=== PATIENT | female | born 1990 | race Caucasian/White ===

== ENCOUNTER → 2020-04-11 | Outpatient (CLI) | payer OTHER ==
--- NOTE | 2020-04-11 11:08 | REP ---
INDICATION: O44.40 LOW LYING PLACENTA,PLACENTAL LOCATION. COMPARISON: None. TECHNIQUE: Transabdominal and transvaginal scanning. Limited scanning for placental localization. FINDINGS: Scanning through the gravid uterus demonstrates a viable single intrauterine gestation in cephalic lie. motion is observed and heart rate is recorded at 142 beats per minute. A posterior placenta is seen, grade 2, without evidence of placenta previa. Amniotic fluid is subjectively normal. Closed cervical length is measured at 3.1 cm transvaginally. The posterior placental tip is 1.3 cm from the internal cervical os on today's transvaginal sagittal images. No extrauterine abnormality is observed. Amniotic fluid is subjectively normal. SCOTT is normal at 12.6 cm.. IMPRESSION: Viable single intrauterine gestation at 36 weeks 3 days by today's composite sonographic criteria. [place] by today's sonography May 06, 2020. No complication identified. Low-lying posterior placenta, 1.3 cm from the internal cervical os. <Electronically signed by Leonid Zhang > 04/11/20 [id number]
== END ==
LOC: M WHC 08:50
PROVIDERS: ATTEND Obstetrics & Gynecology
DX: O44.40 Low lying placenta NOS or without hemorrhage, unspecified trimester (principal); Z3A.36 36 weeks gestation of pregnancy

== ENCOUNTER 2020-04-25 00:27 | Inpatient (IN) | payer OTHER ==
[2020-04-25] VITALS (10 sets, daily range): BP systolic 123–143; BP diastolic 69–91
[~2020-04-25] VITALS: Ht 165.1 cm; Wt 67.6 kg
[2020-04-25] MEDS ORDERED: PREN29CH2 PO (01:05)
[2020-04-25] MEDS ORDERED: LACTATED RINGER'S 1000 ML IV STA (01:44)
[2020-04-25] MEDS ORDERED: LR 1,000 ML IV SCH (01:44)
[2020-04-25] MEDS ORDERED: OXYTOCIN 30 UNITS IN 0.9% NaCl 500ML IV BAG (J2590) As Ordered ONE (01:53)
[2020-04-25 02:02] LABS: HEMATOCRIT 35.8 % (36.0-47.0); HEMOGLOBIN 11.1 g/dl (12.0-15.5); MEAN CORPUSCULAR HEMOGLOBIN 28.6 pg (27.0-33.0); MEAN CORPUSCULAR VOLUME 92.3 fl (80.0-96.0); PLATELET COUNT, AUTOMATED 222 10^3/uL (150-450); RED BLOOD COUNT 3.88 10^6/uL (4.00-5.40); WHITE BLOOD COUNT 11.5 10^3/uL (4.0-10.0)
[2020-04-25 02:25] LABS: CORD GAS ABE V -4.8; CORD GAS HCO3 V 21.6 MEQ/L; CORD GAS O2 SAT V 47.2 %; CORD GAS PCO2 V 44.4 mmHg; CORD GAS PH V 7.304 UNITS; CORD GAS PO2 V 21.5 mmHg; CORD GAS SBC V 19.3 MEQ/L; CORD GAS TCO2 V 22.9 MEQ/L
[2020-04-25] MEDS ORDERED: OXYTOCIN DRIP 30 UNITS in IV 1 EA IV SCH (02:25)
[2020-04-25 02:27] LABS: CORD GAS ABE A -5.5; CORD GAS HCO3 A 24.1 MEQ/L; CORD GAS O2 SAT A 42.2 %; CORD GAS PCO2 A 63.1 mmHg; CORD GAS PH A 7.199 UNITS; CORD GAS PO2 A 20.3 mmHg; CORD GAS SBC A 18.6 MEQ/L
--- NOTE | 2020-04-25 02:27 | REPVR ---
PROCEDURE INFORMATION: Exam: US , Limited Exam date and time: 04/25/2020 2:14 AM Age: 29 years old Clinical indication: Abnormal findings; Abnormal radiologic study of genital organs; ; Patient HX: Prior history of low lying placenta; Additional info: For low lying placenta, placental location TECHNIQUE: Imaging protocol: Real-time ultrasound of the maternal uterus with image documentation. Exam focused on the clinical indication. COMPARISON: OBS LIMITED US 04/11/2020 9:10 AM FINDINGS: Gestation: Single intrauterine fetus. heart rate: heartbeat of 142 bpm. Presentation: Cephalic presentation. Placenta: Posterior placenta without previa or abruption. The placenta is approximately 3.5 cm from the internal os. ANATOMICAL SURVEY: anatomy: The stomach, kidneys and bladder are normal. MATERNAL: Cervix: The cervix measures 3.2 cm. IMPRESSION: 1. Single live intrauterine fetus in cephalic presentation. 2. Posterior placenta which is approximately 3.5 cm above the internal os. 3. The cervix measures 3.2 cm. Electronically signed by: Shashank Ramon On 04/25/2020 02:27:45 AM
[2020-04-25] MEDS ORDERED: METHYLERGONOVINE MALEATE 0.2 MG TAB PO PRN (02:30)
[2020-04-25] MEDS ORDERED: RHOGAM 300 MCG (1500 IU) INJ (J2790) IM SCH (02:30)
[2020-04-25] MEDS ORDERED: ACETAMINOPHEN TAB 650MG DOSE (2X325MG) PO PRN (02:30)
[2020-04-25] MEDS ORDERED: MEASLES,MUMPS,RUBELLA VACCINE INJ (MMR-II) (90707) SC SCH (02:30)
[2020-04-25] MEDS ORDERED: BENZOCAINE 20% HEMORRHOIDAL OINTMENT 28GM TUBE TOP PRN (02:30)
[2020-04-25] MEDS ORDERED: DOCUSATE SODIUM 100 MG CAP PO PRN (02:30)
--- NOTE | 2020-04-25 03:04 | HPEPDOC ---
Obstetrical History & Physical General Date of Admission Apr 25, 2020 at 01:41 History of Present Illness Pt presents with c/o regular contractions at term. History of low lying placenta, scheduled for primary on 01 May 2020, requesting evaluation for vaginal delivery. Chief Complaint: Contractions, term Information Provided By: Patient Age: 29 : 3 Term: 2 Pre-term: 0 Abortions: 0 Livin Care Care: Other (late transfer of care at 37 wks gestation) Dating Final EDC: May 06, 2020 Final EDC for Daily Update: May 06, 2020 Final EDC by: LMP LMP: Jul 31, 2019 EGA at Admission: 38 (+3) Antepartum Course Diagnos(e)s multigravida, low lying placenta Height (inches): 65 Pre- weight (lbs.): 125 Admission Weight (lbs.): 148 Change in Weight (lbs.): 23 Past Medical History Past Obstetrical History : Past Obstetrical History: Multigravida (02/11/15, 7#10 female; 07/15/17 s vd 6#9 female) Type of Delivery: Spontaneous Vaginal Del. Sex of Infant: Female Complications: No GALLERY INTERN History: No pertinent history Past Medical History Medical History hypertension after second Surgical History: Tonsilectomy Family History Significant Family History: Cancer (pgm), Diabetes (father), Heart disease (MGM,PGF), Hypertension (mother) Social History Marital Status: Family situation: Spouse/partner home Psychosocial History: No pertinent psych hx * Smoker: non-smoker Alcohol: Denies Drugs: denies Abuse Violence Screening Have you been hit/kicked/slapp: No Have you been sexually assault: No Allergies Coded Allergies: cefaclor (Verified Allergy, Unknown, rash, 04/25/20) Medications Scheduled No115/Iron/Folic Acid ( 19 Chewable Tablet) 1 Each Tab.chew, 1 TAB PO DAILY Physical Examination Physical Examination GENERAL: Alert and oriented times three. BREAST: . ABDOMEN: Gravid and non-tender to touch. FETUS: Is vertex (VTX) by sterile vaginal examination (SVE), fetus is vertex (VTX) by Amari. HEART RATE: Regular rate and rhythm. LUNGS: Clear to auscultation (CTA). EXTREMITIES: No edema. Other physical findings Consulted with Dr. Chaney for plan of care. States that cervical dilation and effacement indicate a decreased risk of issues with low lying placenta due to advanced effacement and dilation with station of head. Instructed to confirm presentation on ultrasound. Observe for increased bleeding, and advise patient that if bleeding occurs a would be indicated. Vital Signs/I&O Vital Signs Date Time Temp Pulse Resp B/P (MAP) Pulse Ox O2 Delivery O2 Flow Rate FiO2 04/25/20 00:54 98.7 127 18 137/91 (106) Laboratory Data 24H LABS Laboratory Tests 2 04/25/20 01:53: Nucleated Red Blood Cells % (auto) 0.0 04/25/20 02:17: Cord Arterial Blood pH 7.199, Cord Arterial Blood PCO2 63.1, Cord Arterial Blood PO2 20.3, Cord Arterial Blood HCO3 24.1, Cord Arterial Blood Total CO2 26.0, Cord Arterial Blood Base Excess -5.5, Cord Arterial Base Excess (Standard 18.6, Cord Arterial Bld Oxygen Saturation 42.2, Cord Venous Blood pH 7.304, Cord Venous Blood PCO2 44.4, Cord Venous Blood PO2 21.5, Cord Venous Blood HCO3 21.6, Cord Venous Blood Total CO2 22.9, Cord Venous Base Excess (Actual) -4.8, Cord Venous Base Excess (Standard) 19.3, Cord Venous Blood Oxygen Saturation 47.2 CBC/BMP Laboratory Tests 04/25/20 01:53 Pertinent Laboratoy Data Blood Type: A+ RBC Antibody Screen: Negative HIV: Negative Hepatitis B: Negative Rapid Plasma Reagin: Nonreactive Rubella: Immune Chlamydia/Gonorrhea: Negative Group B Streptococcus: Negative Cystic Fibrosis: Negative Anatomy Ultrasound Placenta Location: Posterior (low lying) Normal Anatomy: Yes Other Ultrasounds Multiple ultrasound evaluations of low lying placenta stating measurements that cannot be determined, 2cm, and 1.3cm, confirmation u/s scheduled, not yet completed Vaginal Examination Dilation: 6 cm Effacement: 90% Station: -2 Cervical Consistency: Soft Cervical Position: Middle Presentation: Cephalic presentation Position: Vertex (occiput) Assessment Heart Rate (FHR): 130 Variability: Moderate Accelerations: Positive Tocometer Contractions: Yes Frequency: regular (q 5 min) Duration: greater than 60 seconds Strength: palpated as strong, resting tone palp/soft Multi-drug resistant Organism: No history of MDRO Assessment/Plan Assessment Yasmin is a 29-year-old (G)3 para (P)2-0-0-2 at 38+3 weeks by LMP. Presents to Labor and Delivery (L&D) in active labor. Plan Admit and orient. Avionics System Engineer and consent. Diet: clear. Group B Streptococcus (GBS) negative. Labs and intravenous (IV) x2 per unit protocol. Counseled on recommendations for delivery with low lying placenta and increased risk of bleeding. Lactated Ringers (LR): Bolus 1000 mL, then at 125 mL/hr. Anticipate normal spontaneous delivery (). Ultrasound for presentation. C-S as appropriate. Labor and Delivery Counseling Patient counseled on increased risk of bleeding with low lying placenta. Patient verbalizes consent for blood products in the event that they are indicated. Reviewed labor consents with expressed understanding. LASHAUN MCELROY CNM Apr 25, 2020 03:04
--- NOTE | 2020-04-25 03:37 | DNPDOC ---
[facility] Delivery Note Delivery Note DATE OF DELIVERY: 25Apr2020 PREDELIVERY DIAGNOSIS: 38-3/7 weeks' gestation and labor. POST DELIVERY DIAGNOSIS: Delivered. PROCEDURE: Spontaneous vaginal delivery. FLIGHT TEST MECHANIC: Chelsie Mcelroy CNM ANESTHESIA: none. ESTIMATED BLOOD LOSS: 150 mL. FINDINGS: 7 pound 10 ounce Female , Score 8/9, no nuchal cord. DELIVERY SUMMARY: Patient is a 29-year-old 3 now para 3-0-0-3 who was admitted to labor and delivery for active labor. Yasmin called out with increased pressure during admission assessment and was found to be 9/100/-1, over several contractions she developed and uncontrollable urge to push and was found to be C/C/+2. Brisk decent was made with maternal efforts to in OA presentation over an intact perineum. head restituted to DARIELA. The right anterior shoulder delivered easily followed by the posterior shoulder and corpus. The vigorous female infant was placed immediately skin to skin on the maternal abdomen where she was dried and stimulated. Pitocin infusion was initiated per protocol. The cord was clamped x2 after pulsation ceased and cut. The placenta delivered spontaneously in [place] presentation with minimal bleeding. The fundus firmed immediately. The cervix was swept for a small clot and bleeding appropriately slowed. Mother and baby entered the recovery phase in stable condition with skin to skin uninterrupted. Cord gases collected and sent. Placenta evaluated with marginal cord insertion noted. CHELSIE MCELROY CNM Apr 25, 2020 03:37
[2020-04-25] MEDS: IBUPROFEN 800 MG TAB PO PRN ×2 (04:24→15:16)
[2020-04-25] MEDS: PRENATAL VITAMINS CHEWABLE TABLET PO SCH (08:05)
[2020-04-26] MEDS: IBUPROFEN 800 MG TAB PO PRN ×2 (03:01→14:23)
[2020-04-26 06:24] VITALS: BP 133/82
--- NOTE | 2020-04-26 08:45 | IPNPDOC ---
Progress Note Date of Service: Apr 26, 2020 Day#: 1 Progress Note SUBJECT: Yasmin is a 29yo s/p doing well day # 1. She has b een ambulating, voiding spontaneously without issue and tolerating regular diet. Breast feeding without issue. Reports lochia is decreasing. OBJECTIVE: VITAL SIGNS: Within normal limits, afebrile. Alert and oriented times three. Abdomen: Fundus firm at U-2. Soft, NTTP. : scant lochia, mild edema ASSESSMENT: Yasmin is a 29yo s/p doing well day # 1. Vitals within normal limits, afebrile, hemodynamically stable with no evidence of infection. PLAN: 1. Discharge to home today. 2. Tylenol and Motrin for pain. 3. Encourage breast feeding and ambulation. 4. Encourage regular diet and PO hydration 5. Routine PP visit in 6 weeks in clinic. 6. Discussed return precautions at length. VS, I&O, 24H, Fishbone Vital Signs/I&O Vital Signs Date Time Temp Pulse Resp B/P (MAP) Pulse Ox O2 Delivery O2 Flow Rate FiO2 04/26/20 06:24 97.3 80 18 133/82 (99) 04/25/20 18:00 97 Room Air I&O- Last 24 Hours up to 6 AM 04/26/20 06:00 Intake Total 500 ml Balance 500 ml Laboratory Data 24H LABS Laboratory Tests 2 04/25/20 18:07: Serology Scanned Report Hepatitis B Testing DOMINGA TAYLOR DO Apr 26, 2020 08:45
[2020-04-26] MEDS: PRENATAL VITAMINS CHEWABLE TABLET PO SCH (09:46)
== END 2020-04-26 18:05 | disposition home or self-care (01) | DRG 807 ==
LOC: M LDO 00:27 → M LDI 01:41 → M OBS 04:05
PROVIDERS: ADMIT Registered Nurse; ATTEND Registered Nurse
PROC: 10E0XZZ Delivery of Products of Conception, External Approach (ICD-10-PCS; principal; 2020-04-25)
DX: O44.43 Low lying placenta NOS or without hemorrhage, third trimester (principal); Z37.0 Single live birth; O62.3 Precipitate labor; Z3A.38 38 weeks gestation of pregnancy; O99.344 Other mental disorders complicating childbirth; F41.9 Anxiety disorder, unspecified